=== PATIENT | female | born 1980 | race African-American/Black ===

== ENCOUNTER 2019-09-25 15:17 | Emergency (ER) | payer OTHER ==
[~2019-09-25] VITALS: Ht 160 cm; Wt 95.3 kg
[~2019-09-25 15:17] MED LIST: CLEOCIN HCL150 MG PO; LORTAB 10 MG-3473 ML PO; NORCO 5-325 TA1 EACH PO; PHENERGAN 25 MG25 M1 PO; TOPAMAX50 MG PO; VENTOLIN HFA 1818 GM INH
[2019-09-25 17:04] LABS: URINE BILIRUBIN NEGATIVE (Negative); URINE BLOOD 2+ (Negative); URINE CLARITY CLEAR; URINE COLOR YELLOW; URINE GLUCOSE-RANDOM* NEGATIVE (Negative); URINE KETONES NEGATIVE (Negative); URINE LEUKOCYTES-REFLEX NEGATIVE (Negative); URINE NITRITE-REFLEX NEGATIVE (Negative); URINE PROTEIN (DIPSTICK) NEGATIVE (Negative); URINE SPECIFIC GRAVITY 1.025 (1.005-1.035); URINE UROBILINOGEN 0.2 E.U./dl (0.2-1.0)
[2019-09-25 17:11] LABS: CASTS None Seen /LPF (None Seen); MUCUS >6 Heavy strn/LPF (None Seen); SQUAMOUS >10 Many /LPF (0-3)
[2019-09-25 17:12] LABS: BACTERIA-REFLEX None Seen /HPF (None Seen); CRYSTALS None Seen /LPF (None Seen); URINE RBC 3-10 Few /HPF (0-2); URINE WBC-REFLEX 0-5 Rare /HPF (0-5)
[2019-09-25 17:59] LABS: ABSOLUTE NEUTROPHILS 5.9 thou/uL (1.4-8.2); BASOPHILS 0.4 % (0.0-2.0); HEMATOCRIT 36.1 % (37.0-47.0); HEMOGLOBIN 11.7 gm/dL (12.0-15.0); LYMPHOCYTES 31.1 % (24.0-44.0); MCH 27.2 pg (26.0-34.0); MCHC 32.4 g/dL (28.0-37.0); MCV 83.7 fL (80.0-100.0); MONOCYTES 7.2 % (1.0-8.0); PLATELET COUNT 275 thou/uL (150-400); POLYS 59.3 % (36.0-66.0); RBC 4.32 mil/uL (4.20-5.00); RDW 13.9 % (10.5-14.5)
[2019-09-25 18:08] LABS: CREATININE 0.7 mg/dL (0.6-1.0)
[2019-09-25 18:14] LABS: ALBUMIN 3.5 g/dL (3.4-5.0); TOTAL BILIRUBIN 0.3 mg/dL (<0.1-1.0); TOTAL PROTEIN 7.7 g/dL (6.4-8.2)
[2019-09-25] MEDS ORDERED: NORCO 5-325 TA1 EAC1 PO (21:22)
[2019-09-25 22:12] VITALS: BP 148/88
== END 2019-09-25 22:16 | disposition home or self-care (01) ==
LOC: ER 15:17
PROVIDERS: Physician Assistant
DX: N94.6 Dysmenorrhea, unspecified (principal); R10.32 Left lower quadrant pain; R10.31 Right lower quadrant pain; F17.210 Nicotine dependence, cigarettes, uncomplicated; Z88.0 Allergy status to penicillin; Z98.890 Other specified postprocedural states